=== PATIENT | female | born 1950 | race Caucasian/White ===

== ENCOUNTER 2018-11-30 14:10 | Emergency (ER) | payer MEDICARE, MEDICAID ==
[~2018-11-30] VITALS: Ht 172.7 cm; Wt 93.0 kg
[~2018-11-30 14:10] MED LIST: AZIT250T PO
--- NOTE | 2018-11-30 17:21 | NUR ---
LEFT LATERAL SWELLING OF ABDOMEN NOTED
--- NOTE | 2018-11-30 17:23 | NUR ---
PATIENT TO CXRAY WITH NACHO SILVA TECH; PATIENT AMBULATED WNL
--- NOTE | 2018-11-30 17:33 | NUR ---
CHERYL NELSON INFORMED PATIENT HAS LOST 8 POUNDS IN THE LAST MONTH AND HAS BEEN WATCHING WHAT SHE EATS
--- NOTE | 2018-11-30 17:35 | NUR ---
PAST 2 WEEKS PATIETN HAS BEEN VERY "CIRO FILLED" FEELING
--- NOTE | 2018-11-30 17:41 | NUR ---
CALLED LAB AND CONFIRMED RECEIPT OF URINE, LAB WILL RUN IT NOW
--- NOTE | 2018-11-30 17:41 | NUR ---
PATIENT CONTINUES TO GET UP OUT OF THE CHAIR DUE TO LEFT LATERAL ABDOMINAL PAIN.
[2018-11-30 17:49] LABS: CLARITY,URINE CLEAR (Clear); COLOR,URINE YELLOW (Yellow); GLUCOSE, URINE NEGATIVE (Neg); KETONES,URINE NEGATIVE (Neg); LEUKOCYTE ESTERASE ,URINE NEGATIVE (Neg); NITRITES, URINE NEGATIVE (Neg); PROTEIN,URINE NEGATIVE (Neg); UROBILINOGEN,URINE 0.2 E.U/dL (0.2-1.0)
[2018-11-30 17:55] LABS: OCCULT BLOOD,URINE SMALL (Neg)
[2018-11-30 18:00] LABS: UA COLLECTION TYPE CLN CATCH MIDSTREAM
[2018-11-30 18:01] LABS: SQUAMOUS EPITHELIAL CELL,UR MANY /LPF (FEW); WBC,URINE 0-4 /HPF (0-4)
[2018-11-30 18:02] LABS: BACTERIA,URINE 2+ /HPF (Neg); MUCUS STRANDS FEW /LPF (Neg)
[2018-11-30] MEDS ORDERED: HYDROcodone/acetaminophen 10/325mg tab PO ONE (18:15)
--- NOTE | 2018-11-30 18:15 | NUR ---
DR GOOD IN ROOM AND EVALUATED LEFT LATERAL ABDOMEN AND THINKS THAT HER SWELLING MAY BE A LIPOMA. PATIENT VERBALIZED EDUCATION ABOUT FOLLOWING UP WITH HER PMD USMAN FOR FURTHER EVALUATION OF SWELLING
--- NOTE | 2018-11-30 18:21 | NUR ---
PATIENT STATES THAT SHE CAN TAKE NORCO AND IS AWARE THAT IT HAS ACETAMINOPHEN IN IT. SHE STATES THAT SHE CAN TAKE ACETAMINOPHEN COMBINED WITH ANOTHER MEDICATION BUT CAN NOT TAKE ACETAMINOPHEN ALONE. PA AWARE.
[2018-11-30] MEDS ORDERED: TRAM50TA2 PO (18:24)
[2018-11-30 18:35] VITALS: BP 137/101
[2018-12-01] MEDS ORDERED: MAGN296S50 PO (23:20)
== END 2018-11-30 18:43 | disposition home or self-care (01) ==
LOC: ER 14:11
DX: D17.1 Benign lipomatous neoplasm of skin and subcutaneous tissue of trunk (principal); I10 Essential (primary) hypertension; J45.909 Unspecified asthma, uncomplicated; J44.9 Chronic obstructive pulmonary disease, unspecified; Z88.2 Allergy status to sulfonamides; Z88.8 Allergy status to other drugs, medicaments and biological substances; Z79.899 Other long term (current) drug therapy
CPT/HCPCS: 71046; 81001; 99284

== ENCOUNTER 2018-12-01 21:49 | Emergency (ER) | payer MEDICAID ==
[~2018-12-01] VITALS: Ht 172.7 cm; Wt 92.5 kg
[~2018-12-01 21:49] MED LIST changes: +TRAM50TA2 PO
[2018-12-01] MEDS ORDERED: dexamethasone sod phosphate 10mg/ml inj PO STA (22:59)
[2018-12-01] MEDS ORDERED: MAGN296S50 PO (23:20)
[2018-12-01 23:22] VITALS: BP 180/60
== END 2018-12-01 23:23 | disposition home or self-care (01) ==
LOC: ER 21:49
DX: K59.00 Constipation, unspecified (principal); R10.32 Left lower quadrant pain; I10 Essential (primary) hypertension; M19.90 Unspecified osteoarthritis, unspecified site; J44.9 Chronic obstructive pulmonary disease, unspecified; Z88.2 Allergy status to sulfonamides; Z88.8 Allergy status to other drugs, medicaments and biological substances; Z79.899 Other long term (current) drug therapy
CPT/HCPCS: 99282; J1100

== ENCOUNTER → 2021-03-05 | Emergency (ER) | payer MEDICARE, MEDICAID ==
[~2021-03-05] VITALS: Ht 170.2 cm; Wt 99.8 kg
[~2021-03-05] MED LIST changes: +MAGN296S70 PO; -TRAM50TA2 PO; +acetaminophen 325mg tablet PO ONE; +albuterol 2.5 MG/3 ML nebule CONTNEB PRN; +albuterol 2.5 MG/3 ML nebule NEB ONE; +methylPREDNISolone sod succ 125mg/2ml vial IV ONE
[2021-03-05 22:09] LABS: BASOPHILS % (AUTO) 0.5 % (0-1); EOSINOPHILS # (AUTO) 0.9 X10'3 (0-0.9); EOSINOPHILS % (AUTO) 11.4 % (0-6); HEMATOCRIT 42.2 % (35.0-45.0); HEMOGLOBIN 14.2 g/dl (12.0-16.0); LYMPHOCYTES # (AUTO) 1.1 X10'3 (1.1-4.8); LYMPHOCYTES % (AUTO) 14.5 % (21-51); MEAN CORPUSCULAR HGB CONC 33.7 g/dL (33.0-36.5); MEAN CORPUSCULAR VOLUME 89.1 FL (78-98); MEAN PLATELET VOLUME 8.2 FL (7.4-10.4); MONOCYTES # (AUTO) 0.6 X10'3 (0-0.9); MONOCYTES % (AUTO) 7.8 % (2-12); NEUTROPHILS # (AUTO) 5.2 X10'3 (1.8-7.7); NEUTROPHILS % (AUTO) 65.8 % (42-75); PLATELET COUNT 198 X10'3 (140-440); RED BLOOD COUNT 4.73 X10'6 (4.20-5.60); RED CELL DISTRIBUTION WIDTH 14.5 % (11.5-14.5); WHITE BLOOD COUNT 7.9 X10'3 (4.5-11.0)
[2021-03-05 22:10] VITALS: BP 196/73
[2021-03-05 22:20] LABS: ANION GAP 9 (8-16); BLOOD UREA NITROGEN 17 MG/DL (7-18); BUN/CREATININE RATIO 13.4 (6.6-38.0); CALCIUM 8.9 MG/DL (8.5-10.1); CHLORIDE 107 MMOL/L (99-107); CREATININE 1.27 MG/DL (0.40-0.90); GLUCOSE 159 MG/DL (70-104); SODIUM 142 MMOL/L (135-145); TOTAL CARBON DIOXIDE 25.8 MMOL/L (24-32); eGFR 41 ML/MIN
[2021-03-05 22:21] LABS: ALANINE AMINOTRANSFERASE 29 U/L (12-78); ALBUMIN 3.5 G/DL (3.4-5.0); ALBUMIN/GLOBULIN RATIO 0.9 (1.1-1.5); ALKALINE PHOSPHATASE 68 IU/L (46-116); ASPARTATE AMINO TRANSFERASE 20 U/L (10-37); BILIRUBIN,TOTAL 0.4 MG/DL (0.1-1.0); TOTAL PROTEIN 7.4 G/DL (6.4-8.2)
[2021-03-05 22:26] LABS: TROPONIN I < 0.04 NG/ML (0.0-0.05)
== END | disposition home or self-care (01) ==
LOC: ER 21:05
DX: J44.1 Chronic obstructive pulmonary disease with (acute) exacerbation (principal); R11.0 Nausea; R53.1 Weakness; R07.89 Other chest pain; R06.02 Shortness of breath; R51.9 Headache, unspecified; I10 Essential (primary) hypertension; Z88.2 Allergy status to sulfonamides; Z88.6 Allergy status to analgesic agent; Z88.1 Allergy status to other antibiotic agents; Z79.2 Long term (current) use of antibiotics; Z79.899 Other long term (current) drug therapy
CPT/HCPCS: 36415; 71045; 80053; 83880; 84484; 85025; 93005; 94640; 96374; 99285; J2930; 94760